=== PATIENT | female | born 1980 | race Caucasian/White ===

== ENCOUNTER 2017-08-24 09:34 | Emergency (ER) | payer BC ==
[2017-08-24 10:38] VITALS: BP 113/75
--- NOTE | 2017-08-24 10:52 | UC ---
Throat Pain/Nasal Indra HPI - HPI Summary HPI Summary: mild sore throat and swollen gland daughter with strep - History of Current Complaint Chief Complaint: UCRespiratory Stated Complaint: SORE THROAT,[place]ANDS Time Seen by Provider: 08/24/17 10:47 Hx Obtained From: Patient Hx Last Menstrual Period: unknown, IUD ?: No Onset/Duration: Sudden Onset, Lasting Days - 2, Still Present Severity: Moderate Cough: None - Allergies/Home Medications Allergies/Adverse Reactions: Allergies Allergy/AdvReac Type Severity Reaction Status Date / Time No Known Allergies Allergy Verified 08/24/17 10:38 Home Medications: Home Medications Ibuprofen TAB* [Motrin TAB* 400 MG] 400 mg PO Q6H PRN 08/24/17 [History Confirmed 08/24/17] PMH/Surg Hx/FS Hx/Imm Hx Previously Healthy: Yes - Surgical History Surgical History: None - Family History Known Family History: Positive: None - Social History Occupation: Employed Full-time Lives: With Family Alcohol Use: Rare Substance Use Type: None Smoking Status (MU): Never Smoked Tobacco Review of Systems Constitutional: Negative Skin: Negative Eyes: Negative ENT: Sore Throat, Other - b/l anterior cervical swollen glands Respiratory: Negative Cardiovascular: Negative Gastrointestinal: Negative Genitourinary: Negative Motor: Negative Neurovascular: Negative Musculoskeletal: Negative Neurological: Negative Psychological: Negative Is Patient Immunocompromised?: No All Other Systems Reviewed And Are Negative: Yes Physical Exam Triage Information Reviewed: Yes Appearance: Well-Appearing, No Pain Distress, Well-Nourished Vital Signs: Initial Vital Signs Temp 98.2 F 08/24/17 10:35 Pulse 84 08/24/17 10:35 Resp 16 08/24/17 10:35 BP 113/75 08/24/17 10:35 Pulse Ox 100 08/24/17 10:35 Vital Signs Reviewed: Yes Eye Exam: Normal Eyes: Positive: Conjunctiva Clear ENT Exam: Normal ENT: Positive: Normal ENT inspection, Hearing grossly normal, Pharynx normal, TMs normal, Uvula midline. Negative: Nasal congestion, Nasal drainage, Tonsillar swelling, Tonsillar exudate, Sinus tenderness Dental Exam: Normal Neck exam: Normal Neck: Positive: Supple, Nontender, Enlarged Nodes @ - anterior cervical Respiratory Exam: Normal Respiratory: Positive: Chest non-tender, Lungs clear, Normal breath sounds, No respiratory distress, No accessory muscle use Cardiovascular Exam: Normal Cardiovascular: Positive: RRR, No Murmur, Pulses Normal, Brisk Capillary Refill Musculoskeletal Exam: Normal Musculoskeletal: Positive: Strength Intact, ROM Intact, No Edema Neurological Exam: Normal Neurological: Positive: Alert, Muscle Tone Normal Psychological Exam: Normal Skin Exam: Normal Diagnostics - Laboratory Diagnostic Studies Completed/Ordered: RST (+) Throat Pain/Nasal Course/Dx - Course Assessment/Plan: rest increase fluids, ibuprofen, amoxicillin follow with pcp - Differential Dx/Diagnosis Provider Diagnoses: Strep pharyngitis Discharge - Discharge Plan Condition: Stable Disposition: HOME Prescriptions: Amoxicillin PO (*) [Amoxicillin 875 MG (*)] 875 mg PO BID #20 tab Patient Education Materials: Ibuprofen (By mouth), Strep Throat (ED) Referrals: [facility] [place] [facility] [Outside] - If Needed
== END 2017-08-24 11:01 | disposition home or self-care (01) ==
LOC: UCCORT 09:34
DX: J02.0 Streptococcal pharyngitis (principal); Z97.5 Presence of (intrauterine) contraceptive device
CPT/HCPCS: 87651; 99212; G0463